=== PATIENT | female | born 1945 | race Caucasian/White ===

== ENCOUNTER 2017-12-14 09:37 | Outpatient (CLI) | payer MEDICARE, OTHER ==
[2017-12-14] MEDS ORDERED: ISOVUE-370 76%-LOCM 1 ML ONE (11:39)
== END 2017-12-14 09:38 | disposition home or self-care (01) ==
LOC: BICCT 09:37
PROVIDERS: ATTEND Nurse Practitioner Family
DX: R91.1 Solitary pulmonary nodule (principal)
CPT/HCPCS: 71260

== ENCOUNTER 2018-07-13 09:55 | Outpatient (CLI) | payer MEDICARE, OTHER | END 2018-07-13 09:56 | disposition home or self-care (01) | LOC: BICMAMMO 09:55 | PROVIDERS: ATTEND Nurse Practitioner Family | DX: Z12.31 Encounter for screening mammogram for malignant neoplasm of breast (principal); R92.1 Mammographic calcification found on diagnostic imaging of breast; Z80.3 Family history of malignant neoplasm of breast | CPT/HCPCS: 77063; 77067 ==

== ENCOUNTER 2019-02-16 08:07 | Outpatient (CLI) | payer MEDICARE, OTHER ==
--- NOTE | 2019-02-16 08:16 | RAD ---
Exam: XR Wrist 3 Lt View STANDARD HISTORY: Left wrist pain after a fall. 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 No acute fracture, dislocation, or other acute osseous abnormality is identified. IMPRESSION: 1. Prominent osteoarthritis first metacarpal phalangeal joint. 2. No acute osseous abnormality visualized. If there is clinical concern for fracture of the navicula r bone, follow-up views of the wrist are recommended after conservative management in 4-7 days to evaluate for radiographically occult fracture.
== END 2019-02-16 08:08 | disposition home or self-care (01) ==
LOC: RAD-FRANK 08:07
PROVIDERS: ATTEND Nurse Practitioner Family
DX: M25.532 Pain in left wrist (principal); M18.12 Unilateral primary osteoarthritis of first carpometacarpal joint, left hand

== ENCOUNTER 2019-03-01 16:10 | Outpatient (CLI) | payer MEDICARE, OTHER ==
--- NOTE | 2019-03-01 16:36 | RAD ---
TWO VIEW CHEST: 03/01/19 HISTORY: Cough. COMPARISON: 04/21/17. Lung collado are clear. Eventration left hemidiaphragm posteriorly is stable in appearance. Heart and mediastinum unremarkable. IMPRESSION: No acute process. POS: [facility]
== END 2019-03-01 16:11 | disposition home or self-care (01) ==
LOC: RAD-FRANK 16:10
PROVIDERS: ATTEND Nurse Practitioner Family
DX: R05 Cough (principal)
CPT/HCPCS: 71046

== ENCOUNTER 2021-01-08 10:00 | Outpatient (CLI) | payer MEDICARE, OTHER | END 2021-01-08 10:01 | disposition home or self-care (01) | LOC: BICMAMMO 10:00 | PROVIDERS: ATTEND Nurse Practitioner Family | DX: Z12.31 Encounter for screening mammogram for malignant neoplasm of breast (principal); Z91.89 Other specified personal risk factors, not elsewhere classified | CPT/HCPCS: 77063; 77067 ==

== ENCOUNTER 2023-07-14 10:16 | Outpatient (CLI) | payer MEDICARE, OTHER | END 2023-07-14 10:17 | disposition home or self-care (01) | LOC: BICMAMMO 10:16 | PROVIDERS: ATTEND Nurse Practitioner Family | DX: Z12.31 Encounter for screening mammogram for malignant neoplasm of breast (principal); Z91.89 Other specified personal risk factors, not elsewhere classified | CPT/HCPCS: 77063; 77067 ==

== ENCOUNTER 2024-01-18 13:16 | Outpatient (CLI) | payer MEDICARE, OTHER | END 2024-01-18 13:17 | disposition home or self-care (01) | LOC: BICRAD 13:16 | PROVIDERS: ATTEND Nurse Practitioner Family | DX: R06.02 Shortness of breath (principal) | CPT/HCPCS: 71046 ==

== ENCOUNTER 2024-09-06 13:10 | Outpatient (CLI) | payer MEDICARE, OTHER | END 2024-09-06 13:11 | disposition home or self-care (01) | LOC: RAD 13:10 | PROVIDERS: ATTEND Internal Medicine Critical Care Medicine | DX: R06.00 Dyspnea, unspecified (principal) | CPT/HCPCS: 71046 ==